=== PATIENT | female | born 1955 | race Caucasian/White ===

== ENCOUNTER 2024-10-12 12:15 | Emergency (ER) | payer MEDICARE, SELFPAY ==
[2024-10-12 12:18] VITALS: BP 148/97; PULSE 85; RESP 16; TEMP 36.5; O2SAT 100
--- NOTE | 2024-10-12 12:25 | PC.NURSE ---
Spoke with Mira from POISON control, no orders or recommendations at this time
--- NOTE | 2024-10-12 12:31 | PC.NURSE ---
pt called poison control from waiting room and reports she is going to go home
--- OUTSIDE RECORDS SUMMARY | 2024-10-12 13:36 | XMS_ITS | Encounter Summary ---
Author Organization [facility] Address [address] [place] [address] Phone Care Team Providers Care Hha Name Role Phone Aft, Tracy De Leon MD PhD Unavailable [phone] Malvin Hernandez MD Unavailable [phone] Leticia Fernandez MD Primary Care Provider Enio Stephenson MD Unavailable [phone] Rater, Shante CHAPIN Unavailable Christal Keating MD Unavailable [phone] Encounter Details Date Type Department Care Team (Latest Contact Info) Description 02/16/2021 Orders Only [facility] Scanning, Provider Social History Tobacco Use Types Packs/Day Years Used Date Smoking Tobacco: Never Smokeless Tobacco: Never Alcohol Use Standard Drinks/Week Comments Yes 7 (1 standard drink = 0.6 oz pure alcohol) Oncologist approved a glass of wine daily during treatment PHQ-2 Answer Date Recorded PHQ-2 Total Score (If total score is 3 or more points, staff should administer the PHQ-9) 1 05/08/2020 Comments Unknown Sex and Gender Information Value Date Recorded Sex Assigned at Not on file Legal Sex Female 10:43 AM [employer] Gender Identity Female 05/01/2020 1:22 PM CDT Sexual Orientation Straight 05/01/2020 1: 22 PM CDT documented as of this encounter Plan of Treatment Not on file documented as of this encounter Procedures Procedure Name Priority Date/Time Associated Diagnosis Comments SCAN - LABS 02/16/2021 documented in this encounter Results * SCAN - LABS (02/16/2021) us Provider Scanning Final Result documented in this encounter Visit Diagnoses Not on filedocumented in this encounter Additional Health Concerns Infection Onset Date Last Indicated Resolved Time COVID: Suspected 11/14/2023 11/14/2023 11/14/2023 9:19 AM CDT documented as of this encounter Care Teams Hha Relationship Specialty Start Date End Date Leticia Fernandez MD [address] [place] [address] PCP - General Internal Medicine 11/01/19 Aft, Tracy De Leon MD PhD [address] [place] [address] Referring Physician Surgical Oncology 02/16/18 Malvin Hernandez MD [address] [place] [address] Configuration Engineer Cardiovascular Disease 02/11/19 12/10/23 Enio Stephenson MD [address] [place] [address] Consulting Physician Cardiology 12/08/19 10/03/21 Shante Spicer NP [address] [place] [address] Nurse Practitioner Cardiovascular Disease 12/08/19 Christal Keating MD [address] [facility] [address] [facility] IM [facility]ICAL [facility]COL[facility]Y, [facility] [address] [place] [address] Medical Oncologist/Finisher [facility] 10/05/21 documented as of this encounter
--- OUTSIDE RECORDS SUMMARY | 2024-10-12 13:36 | XMS_ITS | Referral Summary ---
Author Organization [facility] al Address [address] [place] [address] Care Team Providers Care Construction Representative Name Role Phone Aft, Tracy De Leon MD PhD Unavailable [phone] Leticia Fernandez MD Primary Care Provider Shante Spicer NP Unavailable Christal Keating MD Unavailable [phone] Encounters Date Type Department Care Team Description 10/04/2024 3:30 PM CABLE COVERER Office Visit [facility] [address] [place] [phone] Shruti Park NP Acute non-recurrent pansinusitis (Primary Dx); Immune to measles; Class 1 obesity due to excess calories with serious comorbidity and body mass index (BMI) of 31.0 to 31.9 in adult 08/12/2024 2:15 PM CABLE COVERER Office Visit [facility] [address] [place] [phone] Leticia Fernandez MD Chronic systolic congestive heart failure (HCC) (Primary Dx); Chronic atrial fibrillation (HCC); Mixed hyperlipidemia; Acquired hypothyroidism; Primary hypertension; Routine general medical examination at a health care facility; Abnormal blood sugar; Vitamin D deficiency 07/14/2024 11:00 AM CABLE COVERER Office Visit [facility] Floor [address], [address] [place] [address] Néstor Dey MD Chronic atrial fibrillation (HCC) (Primary Dx); Mixed hyperlipidemia; Primary hypertension from Last 3 Months Allergies Active Allergy Reactions Criticality Noted Date Comments Bee Venom Protein (Honey Bee) Unknown 2018 Latex Other (See comments) Low 03/20/2016 Lisinopril Cough High 02/29/2020 Losartan Cough Low 05/08/2020 Magnesium Salicylate Syncope High 05/29/2018 syncope Monosodium Glutamate Unknown 11/11/2018 Medications calcium carbonate-vitamin D3 1,250mg (500mg elemental) - 5 mcg (200 units) per tablet TAKE TABLET DAILY Active cholecalciferol (VITAMIN D-3) 5,000 unit capsule Take 1 capsule (5,000 Units total) by mouth daily Active acetaminophen ER (TYLENOL) 650 mg 8 hr tablet Take 2 tablets (1,300 mg total) by mouth nightly as needed for pain 30 tablet 019 Active triamcinolone (KENALOG) 0.1 % cream Apply to affected area 1-2 times daily as needed. Avoid face and groin. 30 g 5 022 Active estradioL (ESTRACE) 0.01 % (0.1 mg/gram) vaginal creamIndications:V aginal atrophy Apply to vagina nightly for 1 week then every Friday//Friday. 42.5 g 11 022 Active fluticasone propionate (FLONASE) 50 mcg/actuation nasal spray Administer 1 spray into each nostril daily 1 each 1 023 Active albuterol-budesoni de 90-80 mcg/actuation HFA aerosol inhaler Inhale 2 puffs every 4 (four) hours as needed (cough, wheezing, SOB) 10.7 g 1 024 Active EPINEPHrine 0.3 mg/0.3 mL auto-injection syringeIndications :Anaphylaxis Inject 0.3 mL (0.3 mg total) under the skin as needed for anaphylaxis 2 each 3 024 Active levothyroxine (SYNTHROID) 125 mcg tablet Take 1 tablet (125 mcg total) by mouth daily 90 tablet 4 024 Active clobetasoL (TEMOVATE) 0.05 % cream APPLY CREAM TOPICALLY TWICE DAILY 60 g Active apixaban (Eliquis) 5 mg tabletIndications: Mixed hyperlipidemia,Chr onic atrial fibrillation (HCC),Chronic anticoagulation Take 1 tablet by mouth twice daily 180 tablet 3 025 Active spironolactone (ALDACTONE) 25 mg tabletIndications: LV dysfunction,Essent ial hypertension,Chron ic atrial fibrillation (HCC) Take 1 tablet (25 mg total) by mouth daily 90 tablet 3 Active metoprolol XL (TOPROL-XL) 25 mg extended release tabletIndications: LV dysfunction,Essent ial hypertension,Chron ic atrial fibrillation (HCC) Take 1 tablet (25 mg total) by mouth nightly 90 tablet 3 Active metoprolol XL (TOPROL-XL) 100 mg 24 hr tabletIndications: LV dysfunction,Essent ial hypertension,Mixed hyperlipidemia,Chr onic atrial fibrillation (HCC),Chronic anticoagulation Take 1 tablet (100 mg total) by mouth daily 90 tablet 3 Active simvastatin (ZOCOR) 40 mg tabletIndications: Mixed hyperlipidemia TAKE 1 TABLET NIGHTLY 90 tablet 3 Active alendronate (FOSAMAX) 70 mg tablet TAKE 1 TABLET EVERY 7 DAYS IN THE MORNING WITH A FULL GLASS OF WATER ON AN EMPTY STOMACH, AND DO NOT TAKE ANYTHING ELSE BY MOUTH OR LIE DOWN FOR THE NEXT 30 MINUTES 12 tablet 3 Active amoxicillin-clavul anate (AUGMENTIN) 875-125 mg per tablet Take 1 tablet by mouth 2 (two) times a day for 10 days 20 tablet 025 2024 Active alendronate (FOSAMAX) 70 mg tablet TAKE 1 TABLET EVERY 7 DAYS IN THE MORNING WITH A FULL GLASS OF WATER ON AN EMPTY STOMACH, AND DO NOT TAKE ANYTHING ELSE BY MOUTH OR LIE DOWN FOR THE NEXT 30 MINUTES 12 tablet 3 024 2024 Discontinued simvastatin (ZOCOR) 40 mg tabletIndications: Mixed hyperlipidemia TAKE 1 TABLET NIGHTLY 90 tablet 3 024 2024 Discontinued Active Problems Problem Noted Date Diagnosed Date Primary hypertension 07/14/2024 Combined forms of age-related cataract of both e yes 01/16/2024 Assessment & Plan (02/23/2024 11:52 AM CDT): Released new SRx- doctor remake. Monitor as scheduled 01/2025 for annual exam, sooner prn. Assessment & Plan (01/16/2024 10:45 AM CDT): Educated patient on s/s associated with cataracts. Not visually significant, recommend UV protection. Released updated SRx. Monitor. Posterior vitreous detachment of left eye 2023 Assessment & Plan (01/16/2024 10:44 AM CDT): No h/t/d 360 today. Educated pt, reviewed s/s of RD/RT and to RTC should any occur. Otherwise, monitor w/ annual DFE. 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 No bleeding. Assessment & Plan (01/19/2019 7:16 AM CDT): Stable on Eliquis BMI 33.0-33.9,adult 07/20/2018 Assessment & Plan (01/19/2019 7:18 AM CDT): BMI Follow-up includes: exercise counseling. Allergic rhinitis 07/20/2018 Assessment & Plan (08/09/2019 4:15 PM CABLE COVERER): Stable on Flonase and fexofenadine Assessment & Plan (01/19/2019 7:18 AM CDT): Stable on Flonase and fexofenadine Restrictive ventilatory defect 07/13/2018 Hyperlipidemia 08/26/2017 Assessment & Plan (08/09/2019 4:16 PM CABLE COVERER): Stable on simvastatin and fenofibrate Assessment & Plan (04/20/2019 1:53 PM CDT): Continue simvastatin Assessment & Plan (01/19/2019 7:16 AM CDT): Stable on fenofibrate and simvastatin Hypothyroidism 05/19/2017 Assessment & Plan (08/09/2019 4:13 PM CABLE COVERER): Stable on levothyroxine Assessment & Plan (01/19/2019 7:15 AM CDT): Stable on levothyroxine CLL (chronic lymphocytic leukemia) 03/20/2016 Assessment & Plan (08/09/2019 4:14 PM CABLE COVERER): Active surveillance with Dr. Keating Assessment & Plan (01/19/2019 7:17 AM CDT): Stable. Follows with Dr. Keating Scoliosis Resolved Problems Problem Noted Date Diagnosed Date Resolved Date CLL C91.10 02/09/2018 02/25/2018 Chronic atrial fibrillation 05/19/2017 09/03/2019 Assessment & Plan (08/10/2019 2:16 PM CABLE COVERER): Rate controlled on metoprolol. Stroke prophylaxis with Eliquis Assessment & Plan (04/20/2019 1:50 PM CDT): Rate controlled. Severe left atrial enlargement. Continue metoprolol and digoxin. Assessment & Plan (01/19/2019 7:16 AM CDT): Rate controlled on Toprol XL and digoxin. Stroke prophylaxis with Eliquis Immunizations Immunization Administration Dates Next Due COVID-19 mRNA (Cityzenith) 0.3 m L (30 mcg) vaccine (12 years and up) 04/27/2023 Influenza, Quad, Adjuvantate d, Intramuscular 06/08/2023 Influenza, Quadrivalent, Hig h Dose, Preservative Free, Intrr 05/15/2021,05/08/2020 Influenza, Quadrivalent, Spl it, Preservative Free, Intramuscular 04/01/2018 Influenza, Trivalent, High D ose, Split, Preservative Free, Intramuscular 04/28/2024 Influenza, Trivalent, IM (MDV) 05/04/2017 Influenza, Trivalent, Preser vative Free, Intramuscular 04/16/2016,05/11/2015 Influenza, Unspecified 05/28/2023(Deferr ed: Patient Refused),05/06/2022,04/05/2019(Deferre d: Patient Refused) Pfizer SARS-CoV-2 Monovalent Vaccination (12+ Yrs) PURPLE 05/06/2022,03/19/2021,03/19/2021,09/30,09/30/2020,09/08/2020,09/08/2020 Pneumococcal Conjugate PCV 13 05/21/2017, 015,05/11/2015 Pneumococcal Polysaccharide PPV23 05/13/2018 RSV Vaccine, Pref, Recombina nt, Subunit, Adjuvanted, PF, IM (Arexvy) 05/28/2023,05/15/2023 ZOSTER Recombinant 05/13/2018,03/12/2018 Social History Tobacco Use Types Packs/Day Years Used Date Smoking Tobacco: Never Smokeless Tobacco: Never Tobacco Cessation:Counseling Given: Not Answered Alcohol Use Standard Drinks/Week Comments Yes 7 (1 standard drink = 0.6 oz pure alcohol) Oncologist approved a glass of wine daily during treatment AUDIT-C Answer Date Recorded Q1: How often do you have a drink containing alcohol? 4 or more times a week 01/15/2024 Q2: How many drinks containi ng alcohol do you have on a typical day when you are drinking? 1 or 2 Q3: How often do you have si x or more drinks on one occasion? Never 01/15/2024 PHQ-2 Answer Date Recorded PHQ-2 Total Score (If total score is 3 or more points, staff should administer the PHQ-9) 0 10/04/2024 PHQ-9 Answer Date Recorded PHQ-9 Total Score 0 01/15/2024 Comments No Sex and Gender Information Value Date Recorded Sex Assigned at Not on file Legal Sex Female 10:43 AM CABLE COVERER Gender Identity Female 05/01/2020 1:22 PM CDT Sexual Orientation Straight 05/01/2020 1: 22 PM CDT Last Filed Vital Signs Vital Sign Reading Time Taken Comments Blood Pressure 114/72 10/04/2024 3:25 PM CABLE COVERER Pulse 88 10/04/2024 3:25 PM CABLE COVERER Temperature 35.9 C (96.6 F) 10/04/2024 3:25 PM CABLE COVERER Respiratory Rate 17 07/14/2024 10:57 AM CABLE COVERER Oxygen Saturation 98% 10/04/2024 3:25 PM CABLE COVERER Inhaled Oxygen Concentration - - Weight 81.3 kg (179 lb 3.2 oz) 10/04/2024 3:25 P M CABLE COVERER Height 160 cm (5' 3 ) 10/04/2024 3:25 PM CABLE COVERER Body Mass Index 31.74 10/04/2024 3:25 PM CABLE COVERER Plan of Treatment Not on file Procedures Procedure Name Priority Date/Time Associated Diagnosis Comments SCREENING MAMMOGRAM BILATERAL W FRANCISCO Schedule Routine, Read Routine (OP Routine) 06/15/2024 11:10 AM CABLE COVERER Screening mammogram, encounter for STOOL DNA COLOGUARD Routine 01/27/2024 8:18 AM CDT Colon cancer screening DEXA AXIAL SKELETON BONE DENSITY 1 OR MORE SITES Schedule Routine, Read Routine (OP Routine) 12/26/2022 3:28 PM CDT Post-menopausal HEPATITIS C ANTIBODY Routine 02/18/2019 2:09 PM CDT CLL (chronic lymphocytic leukemia) (HCC) COLONOSCOPY Routine 03/15/2011 from Last 3 Months or Most Recently Relevant to Health Maintenance Results * Screening Mammogram Bilateral W Francisco (06/15/2024 11:10 AM CABLE COVERER) Anatomical Region Laterality Modality Breast Bilateral Mammography Impressions 06/15/2024 11:42 AM CABLE COVERER BI-RADS ATLAS category (overall): 1 - Negative There is no mammographic evidence of malignancy. A 1 year screening mammogram is recommended. The patient has been or will be contacted. We recommend annual screening mammography for women at average risk of breast cancer beginning at age 40, based on guidelines of the [place] [employer] (ACR Practice Parameter for the Performance of Screening and Diagnostic Mammography) and [place] [employer]. For women with and elevated risk of breast cancer, please refer to the ACR Practice Parameter for specific screening recommendations. The patient will be entered into a reminder system with a target due date of 1 year for her next screening exam. Narrative 06/15/2024 11:42 AM CABLE COVERER Screening Mammogram Bilateral W Francisco: 06/15/24 The study was acquired using full field digital technology and interpreted from soft copy. 2D digital mammographic views, as well as 3D digital tomosynthesis were performed in the CC and MLO projections. CLINICAL: Screening mammogram, encounter for. No relevant medical history has been documented for this patient. History of breast cancer in Sister. COMPARISONS: 03/05/2023 Screening Mammogram Bilateral W Francisco 01/28/2022 Screening Mammogram Bilateral W Francisco 12/08/2020 Screening Mammogram Bilateral W Francisco 03/30/2019 Screening Mammogram Bilateral W Francisco BREAST TISSUE: There are scattered areas of fibroglandular density. FINDINGS: No suspicious masses, suspicious calcifications, or other suspicious findings are seen within either breast. There has been no suspicious change. Leticia Fernandez MD [facility] [place] [facility] CED[facility] Final Result * Stool DNA - Cologuard (01/27/2024 8:18 AM CDT) Stool DNA - Cologuard Negative Negative [facility] (CLIA #:[id number]) Comment: NEGATIVE TEST RESULT. A negative Cologuard result indicates a low likelihood that a colorectal cancer (CRC) or advanced adenoma (adenomatous polyps with more advanced pre-malignant features) is present. The chance that a person with a negative Cologuard test has a colorectal cancer is less than 1 in 1500 (negative predictive value >99.9%) or has an advanced adenoma is less than 5.3% (negative predictive value 94.7%). These data are based on a prospective cross-sectional study of 10,000 individuals at average risk for colorectal cancer who were screened with both Cologuard and colonoscopy. (Nia Fernandez al, N Engl J Med 2014;370(14):6024-8321) The normal value (reference range) for this assay is negative. COLOGUARD RE-SCREENING RECOMMENDATION: Periodic colorectal cancer screening is an important part of preventive healthcare for asymptomatic individuals at average risk for colorectal cancer. Following a negative Cologuard result, the [place] [employer] and U.S. Multi-Society Task Force screening guidelines recommend a Cologuard re-screening interval of 3 years. References: [place] [employer] Guideline for Colorectal Cancer Screening: https://www.cancer.org/cancer/pqhai-vurgsl-sbnjhu/rclknocqf-bavsralzw-rqatypq/ac s-rec ommendations.html.; James DK, Nathalie BURCH, Meagan WhiteK, Colorectal Cancer Screening: Recommendations for Physicians and Patients from the U.S. Multi-Society Task Force on Colorectal Cancer Screening , Am J Gastroenterology 2017; 112:2988-7585. TEST DESCRIPTION: Composite algorithmic analysis of stool DNA-biomarkers with hemoglobin immunoassay. Quantitative values of individual biomarkers are not reportable and are not associated with individual biomarker result reference ranges. Cologuard is intended for colorectal cancer screening of adults of either sex, 45 years or older, who are at average-risk for colorectal cancer (CRC). Cologuard has been approved for use by the U.S. FDA. The performance of Cologuard was established in a cross sectional study of average-risk adults aged 50-84. Cologuard performance in patients ages 45 to 49 years was estimated by sub-group analysis of near-age groups. Colonoscopies performed for a positive result may find as the most clinically significant lesion: colorectal cancer [4.0%], advanced adenoma (including sessile serrated polyps greater than or equal to 1cm diameter) [20%] or non- advanced adenoma [31%]; or no colorectal neoplasia [45%]. These estimates are derived from a prospective cross-sectional screening study of 10,000 individuals at average risk for colorectal cancer who were screened with both Cologuard and colonoscopy. (Nia Baptiste, N Engl J Med 2014;370(14):6528-5716.) Cologuard may produce a false negative or false positive result (no colorectal cancer or precancerous polyp present at colonoscopy follow up). A negative Cologuard test result does not guarantee the absence of CRC or advanced adenoma (pre-cancer). The current Cologuard screening interval is every 3 years. ([place] [employer] and U.S. Multi-Society Task Force). Cologuard performance data in a 10,000 patient pivotal study using colonoscopy as the reference method can be accessed at the following location: www.[employer]/results. Additional description of the Cologuard test process, warnings and precautions can be found at www.cologuard.com. Stool 01/27/2024 8:18 AM CDT 01/28/2024 9:44 AM CDT Leticia Fernandez MD LAB B [facility] FLUIDS AND STOOLS ORDERABLES Final Result [facility] (CLIA #:[id number]) [place] [address] * Dexa Axial Skeleton Bone Density 1 or 2 Site (12/26/2022 3:28 PM CDT) Anatomical Region Laterality Modality Body N/A Mammography 12/28/2022 10:0 6 AM CDT Narrative 12/28/2022 10:08 AM CDT EXAM DESCRIPTION: DEXA AXIAL SKELETON BONE DENSITY 1 OR MORE SITES REASON FOR STUDY: 67 y/o year old F with given history of screening. 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 COMPARISON: 12/25/2020 FINDINGS: AP LUMBAR SPINE L1-L4: Total BMD is 0.866 g/cm2 T-score is -1.6 This is a 30.5% increase in comparison to prior exam which is statistically significant. LEFT HIP: Total BMD is 0.984 g/cm2 T-score is 0.3 This is an 8% increase in comparison to prior exam which is statistically significant. Femoral neck BMD is 0.901 g/cm2 T-score is 0.5 Left forearm BMD in the radius 33% is 0.667 g/cm2 T-score is -0.5 This is a 0.9% decrease in comparison to prior exam which is not clinically significant FRAX: 10 year risk for a major osteoporotic fracture is 7.3 %, 10 year risk for a hip fracture is 0.3 % IMPRESSION: Low bone mass REFERENCE: Bone mineral density: Normal (T-score above or = -1.0) Low bone mass (T-score between -1.0 and -2.5) replaces the previously used term osteopenia Osteoporosis (T-score = or below -2.5) Medical evaluation for secondary causes of low bone mineral density may be appropriate. FRAX is a World Health Organization validated fracture risk assessment tool that calculates a person's 10 year probability of a major osteoporosis related fracture and hip fracture. According to the National Osteoporosis Foundation guidelines, postmenopausal women and men age 50 or older with low bone mass and a 10 year probability of a major osteoporosis related fracture = or greater than 20% or a 10 year probability of a hip fracture = or greater than 3% should be considered for treatment. For further information, including treatment recommendations, please refer to the 2019 ISCD Official Positions (http://www.iscd.org) and the NOF's Clinician's Guide to Prevention and Treatment of Osteoporosis (http://www.nof.org/professionals/clinical-guidelines) THIS IS AN ELECTRONICALLY VERIFIED FINAL REPORT 12/28/2022 10:08 AM - Electronically signed by Bettie Watt M.D. TW: TW Report ID: [id number] Reading Location: [id number] Procedure Note Bettie Watt MD - 12/28/2022 EXAM DESCRIPTION: DEXA AXIAL SKELETON BONE DENSITY 1 OR MORE SITES REASON FOR STUDY: 67 y/o year old F with given history of screening. 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 COMPARISON: 12/25/2020 FINDINGS: AP LUMBAR SPINE L1-L4: Total BMD is 0.866 g/cm2 T-score is -1.6 This is a 30.5% increase in comparison to prior exam which isstatistically significant. LEFT HIP: Total BMD is 0.984 g/cm2 T-score is 0.3 This is an 8% increase in comparison to prior exam which is statistically significant. Femoral neck BMD is 0.901 g/cm2 T-score is 0.5 Left forearm BMD in the radius 33% is 0.667 g/cm2 T-score is -0.5 This is a 0.9% decrease in comparison to prior exam which is notclinically significant FRAX: 10 year risk for a major osteoporotic fracture is 7.3 %, 10 year risk fora hip fracture is 0.3 % IMPRESSION: Low bone mass REFERENCE: Bone mineral density: Normal (T-score above or = -1.0) Low bone mass (T-score between -1.0 and -2.5) replaces thepreviously used term osteopenia Osteoporosis (T-score = or below -2.5) Medical evaluation for secondary causes of low bone mineral density may be appropriate. FRAX is a World Health Organization validated fracture risk assessmenttool that calculates a person's 10 year probability of a major osteoporosisrelated fracture and hip fracture. According to the National OsteoporosisFoundation guidelines, postmenopausal women and men age 50 or older with low bonemass and a 10 year probability of a major osteoporosis related fracture = or greater than 20% or a 10 year probability of a hip fracture = or greaterthan 3% should be considered for treatment. For further information, including treatment recommendations, please referto the 2019 ISCD Official Positions (http://www.iscd.org) and the NOF's Clinician's Guide to Prevention and Treatment of Osteoporosis (http://www.nof.org/professionals/clinical-guidelines) THIS IS AN ELECTRONICALLY VERIFIED FINAL REPORT 12/28/2022 10:08 AM - Electronically signed by Bettie Watt M.D. TW: MARIE Report ID: [id number] Reading Location: [id number] us Leticia Fernandez MD IMG DXA JUNE HDEZ Final Result * Hepatitis C antibody (02/18/2019 2:09 PM CDT) Hep C Ab Nonreactive Nonreactive [facility] Comment: Interpretive Data Positive results should be confirmed by a molecular method. If positive, a second separately collected sample should be submitted for Hepatitis C Virus (HCV) RNA Detection and Quantitation by Real-Time Reverse Customs Agent-PCR (RT-PCR). Current interpretive data was last revised on 2016. Blood specimen (specimen) 02/18/2019 2:09 PM CDT 02/18/2019 2:19 PM CDT Christal Keating MD LAB MICROBIOLOGY - GENERAL ORDERABLES Edited Result - Final [facility] Department [place] [address] * Colonoscopy (03/15/2011) Anatomical Region Laterality Modality Other Historical Provider ENDOSCOPY PROCEDURES Tana l Result from Last 3 Months or Most Recently Relevant to Health Maintenance Insurance MEDICARE [facility] [place] [address] MEDICARE [facility] [place] [address] MEDICARE [facility] [place] [address] Care Teams Construction Representative Relationship Specialty Start Date End Date Leticia Fernandez MD [address] [place] [address] PCP - General Internal Medicine 11/01/19 Aft, Tracy De Leon MD PhD [address] [place] [address] Referring Physician Surgical Oncology 02/16/18 Shante Spicer NP [address] [place] [address] Nurse Practitioner Cardiovascular Disease 12/08/19 Christal Keating MD [address] [facility], [facility] [address] [place] [address] Medical Oncologist/Zigzag Stitcher Medical Oncology 10/05/21
--- OUTSIDE RECORDS SUMMARY | 2024-10-12 13:36 | XMS_ITS | Encounter Summary ---
Author Organization [facility] Address [address] [place] [address] Phone Care Team Providers Care Cma Name Role Phone Aft, Tracy De Leon MD PhD Unavailable [phone] Malvin Hernandez MD Unavailable [phone] Leticia Fernandez MD Primary Care Provider Enio Stephenson MD Unavailable [phone] Nayan, Shante CHAPIN Unavailable Christal Keating MD Unavailable [phone] Encounter Details Date Type Department Care Team (Latest Contact Info) Description 05/21/2017 Orders Only [facility] CONVERSION Scanning, Provider Social History Tobacco Use Types Packs/Day Years Used Date Smoking Tobacco: Never Comments Unknown Sex and Gender Information Value Date Recorded Sex Assigned at Not on file Legal Sex Female 10:43 AM DIRECTOR TRADE Gender Identity Female 05/01/2020 1:22 PM CDT Sexual Orientation Straight 05/01/2020 1: 22 PM CDT documented as of this encounter Plan of Treatment Not on file documented as of this encounter Procedures Procedure Name Priority Date/Time Associated Diagnosis Comments PULMONARY FUNCTION TEST (PFT) 05/21/2017 12:37 PM CDT documented in this encounter Results * PULMONARY FUNCTION TEST (PFT) (05/21/2017 12:37 PM CDT) Anatomical Region Laterality Modality PFT us Provider Scanning PFT ORDERABLES Final Result documented in this encounter Visit Diagnoses Not on filedocumented in this encounter Additional Health Concerns Infection Onset Date Last Indicated Resolved Time COVID: Suspected 11/14/2023 11/14/2023 11/14/2023 9:19 AM CDT documented as of this encounter Care Teams Cma Relationship Specialty Start Date End Date Leticia Fernandez MD [address] [place] [address] PCP - General Internal Medicine 11/01/19 Aft, Tracy De Leon MD PhD [address] [place] [address] Referring Physician Surgical Oncology 02/16/18 [place] [address] [place] [address] Health Information Administrator Cardiovascular Disease 02/11/19 12/10/23 [place] [address] [place] [address] Consulting Physician Cardiology 12/08/19 10/03/21 [place] [address] [place] [address] Nurse Practitioner Cardiovascular Disease 12/08/19 [place] [address] [place] [address] DIV IM MEDICAL ONCOLOGY, [facility] [address], [address] [place] [address] Medical Oncologist/C++ Professor Medical Oncology 10/05/21 documented as of this encounter
--- OUTSIDE RECORDS SUMMARY | 2024-10-12 13:36 | XMS_ITS ---
Author Organization [facility] Address [address] [place] [address] Care Team Providers Care Community Coordinator [employer] Name Role Phone Aft, Tracy De Leon MD PhD Unavailable Leticia Fernandez MD Primary Care Provider Shante Spicer NP Unavailable Christal Keating MD Unavailable [phone] Active Problems Problem Noted Date Diagnosed Date [...] 08/10/2019 Assessment & Plan (08/10/2019 2:20 PM MIDDLE SCHOOL PROFESSIONAL): Stable on Vitamin D Chronic anticoagulation 01/19/2019 Assessment & Plan (04/20/2019 1:50 PM CDT): Continue Eliquis 5 b.i.d. No bleeding. Assessment & Plan (01/19/2019 7:16 AM CDT): Stable on Eliquis BMI 33.0-33.9,adult 07/20/2018 Assessment & Plan (01/19/2019 7:18 AM CDT): BMI Follow-up includes: exercise counseling. Allergic rhinitis 07/20/2018 Assessment & Plan (08/09/2019 4:15 PM MIDDLE SCHOOL PROFESSIONAL): Stable on Flonase and fexofenadine Assessment & Plan (01/19/2019 7:18 AM CDT): Stable on Flonase and fexofenadine Restrictive ventilatory defect 07/13/2018 Hyperlipidemia 08/26/2017 Assessment & Plan (08/09/2019 4:16 PM MIDDLE SCHOOL PROFESSIONAL): Stable on simvastatin and fenofibrate Assessment & Plan (04/20/2019 1:53 PM CDT): Continue simvastatin Assessment & Plan (01/19/2019 7:16 AM CDT): Stable on fenofibrate and simvastatin Hypothyroidism 05/19/2017 Assessment & Plan (08/09/2019 4:13 PM MIDDLE SCHOOL PROFESSIONAL): Stable on levothyroxine Assessment & Plan (01/19/2019 7:15 AM CDT): Stable on levothyroxine CLL (chronic lymphocytic leukemia) 03/20/2016 Assessment & Plan (08/09/2019 4:14 PM MIDDLE SCHOOL PROFESSIONAL): Active surveillance with Dr. Keating Assessment & Plan (01/19/2019 7:17 AM CDT): Stable. Follows with Dr. Keating Scoliosis Current Treatment and Therapy Plans No current plan information found. Past Treatment and Therapy Plans Line Care Plan Name Start Date Discontinue Date Treatment Medications Discontinue Reason Plan Provider IV MAINTENANCE THERAPY PLAN 03/04/2019 09/20/2021 No medications scheduled. Change in Level of Care Chrsital Keating MD Oncology Chemotherapy Treatment Plan Name Start Date Discontinue Date Treatment Medications Discontinue Reason Plan Provider Cycles [id number] - [facility] - Lymphoma- [id number] - Arm A - Ibrutinib / Obinutuzumab / Venetoclax - Cycles 3-19 - Low / Intermediate TLS Risk (OUTPATIENT) 9 11/07/2020 INV-[facility] (/E A9161) obinutuzumab IVPB in 250 mLINV-[facility] ibrutinib (/E A9161)INV-[facility] _[facility] venetoclax (ABT-199) (/E A9161) Therapy Christal Serrano MD 19 (17 of 17 cycles) completed [id number] - [facility] - Lymphoma- [id number] - Arm A - Ibrutinib / Obinutuzumab / Venetoclax - Cycles 1 and 2 9 03/26/2019 INV-[facility] (/E A9161) obinutuzumab IVPB in 250 mLINV-[facility] ibrutinib (/E A9161) Therapy Christal Serrano MD 2 of 2 cycles completed Oncology Supportive Care Plan Name Start Date Discontinue Date Treatment Medications Discontinue Reason Plan Provider HYDRATION THERAPY PLAN 04/25/2019 09/20/2021 No medications scheduled. Change in Level of Care Christal Keating MD Lifetime Dose Tracking * Chemical Lifetime Dose Automatic Entry Manual Entr y DLP 7,477 mGycm 7,477 mGycm 0 mGycm Resolved Problems Problem Noted Date Diagnosed Date Resolved Date CLL C91.10 02/09/2018 02/25/2018 Chronic atrial fibrillation 05/19/2017 09/03/2019 Assessment & Plan (08/10/2019 2:16 PM MIDDLE SCHOOL PROFESSIONAL): Rate controlled on metoprolol. Stroke prophylaxis with Eliquis Assessment & Plan (04/20/2019 1:50 PM CDT): Rate controlled. Severe left atrial enlargement. Continue metoprolol and digoxin. Assessment & Plan (01/19/2019 7:16 AM CDT): Rate controlled on Toprol XL and digoxin. Stroke prophylaxis with Eliquis
--- OUTSIDE RECORDS SUMMARY | 2024-10-12 13:37 | XMS_ITS | Clinical Summary ---
Author Organization [facility] Address [address] [place] [address] Care Team Providers Care Day Care Attendant Name Role Phone Aft, Tracy De Leon MD PhD Unavailable [phone] Leticia Fernandez MD Primary Care Provider Shante Spicer NP Unavailable Christal Keating MD Unavailable [phone] Allergies Active Allergy Reactions Criticality Noted Date [...] APPLY CREAM TOPICALLY TWICE DAILY 60 g 024 Active apixaban (Eliquis) 5 mg tabletIndications: Mixed hyperlipidemia,Chr onic atrial fibrillation (HCC),Chronic anticoagulation Take 1 tablet by mouth twice daily 180 tablet 3 025 Active spironolactone (ALDACTONE) 25 mg tabletIndications: LV dysfunction,Essent ial hypertension,Chron ic atrial fibrillation (HCC) Take 1 tablet (25 mg total) by mouth daily 90 tablet 3 025 Active metoprolol XL (TOPROL-XL) 25 mg extended release tabletIndications: LV dysfunction,Essent ial hypertension,Chron ic atrial fibrillation (HCC) Take 1 tablet (25 mg total) by mouth nightly 90 tablet 3 025 Active metoprolol XL (TOPROL-XL) 100 mg 24 hr tabletIndications: LV dysfunction,Essent ial hypertension,Mixed hyperlipidemia,Chr onic atrial fibrillation (HCC),Chronic anticoagulation Take 1 tablet (100 mg total) by mouth daily 90 tablet 3 025 Active simvastatin (ZOCOR) 40 mg tabletIndications: Mixed hyperlipidemia TAKE 1 TABLET NIGHTLY 90 tablet 3 025 Active alendronate (FOSAMAX) 70 mg tablet TAKE 1 TABLET EVERY 7 DAYS IN THE MORNING WITH A FULL GLASS OF WATER ON AN EMPTY STOMACH, AND DO NOT TAKE ANYTHING ELSE BY MOUTH OR LIE DOWN FOR THE NEXT 30 MINUTES 12 tablet 3 025 Active amoxicillin-clavul anate (AUGMENTIN) 875-125 mg per [...] 08/10/2019 Assessment & Plan (08/10/2019 2:20 PM SKILLED NURSING PROFESSIONAL): Stable on Vitamin D Chronic anticoagulation 01/19/2019 Assessment & Plan (04/20/2019 1:50 PM CDT): Continue Eliquis 5 b.i.d. No bleeding. Assessment & Plan (01/19/2019 7:16 AM CDT): Stable on Eliquis BMI 33.0-33.9,adult 07/20/2018 Assessment & Plan (01/19/2019 7:18 AM CDT): BMI Follow-up includes: exercise counseling. Allergic rhinitis 07/20/2018 Assessment & Plan (08/09/2019 4:15 PM SKILLED NURSING PROFESSIONAL): Stable on Flonase and fexofenadine Assessment & Plan (01/19/2019 7:18 AM CDT): Stable on Flonase and fexofenadine Restrictive ventilatory defect 07/13/2018 Hyperlipidemia 08/26/2017 Assessment & Plan (08/09/2019 4:16 PM SKILLED NURSING PROFESSIONAL): Stable on simvastatin and fenofibrate Assessment & Plan (04/20/2019 1:53 PM CDT): Continue simvastatin Assessment & Plan (01/19/2019 7:16 AM CDT): Stable on fenofibrate and simvastatin Hypothyroidism 05/19/2017 Assessment & Plan (08/09/2019 4:13 PM SKILLED NURSING PROFESSIONAL): Stable on levothyroxine Assessment & Plan (01/19/2019 7:15 AM CDT): Stable on levothyroxine CLL (chronic lymphocytic leukemia) 03/20/2016 Assessment & Plan (08/09/2019 4:14 PM SKILLED NURSING PROFESSIONAL): Active surveillance with Dr. Keating Assessment & Plan (01/19/2019 7:17 AM CDT): Stable. Follows with Dr. Keating Scoliosis Resolved Problems Problem Noted Date Diagnosed Date Resolved Date CLL C91.10 02/09/2018 02/25/2018 Chronic atrial fibrillation 05/19/2017 09/03/2019 Assessment & Plan (08/10/2019 2:16 PM SKILLED NURSING PROFESSIONAL): Rate controlled on metoprolol. Stroke prophylaxis with Eliquis Assessment & Plan (04/20/2019 1:50 PM CDT): Rate controlled. Severe left atrial enlargement. Continue metoprolol and digoxin. Assessment & Plan (01/19/2019 7:16 AM CDT): Rate controlled on Toprol XL and digoxin. Stroke prophylaxis with Eliquis Encounters Date Type Department Care Team Description 10/04/2024 3:30 PM SKILLED NURSING PROFESSIONAL Office Visit [facility] [address] [place] [phone] Shruti Park NP Acute non-recurrent pansinusitis (Primary Dx); Immune to measles; Class 1 obesity due to excess calories with serious comorbidity and body mass index (BMI) of 31.0 to 31.9 in adult 08/12/2024 2:15 PM SKILLED NURSING PROFESSIONAL Office Visit [facility] Care [address] [place] [phone] Leticia Fernandez MD Chronic systolic congestive heart failure (HCC) (Primary Dx); Chronic atrial fibrillation (HCC); Mixed hyperlipidemia; Acquired hypothyroidism; Primary hypertension; Routine general medical examination at a health care facility; Abnormal blood sugar; Vitamin D deficiency 07/14/2024 11:00 AM SKILLED NURSING PROFESSIONAL Office Visit [facility] [address] [facility] [address], [address] [place] [address] Néstor Dey MD Chronic atrial fibrillation (HCC) (Primary Dx); Mixed hyperlipidemia; Primary hypertension from Last 3 Months Immunizations Immunization Administration Dates Next Due COVID-19 mRNA ([employer]) 0.3 m L (30 mcg) vaccine (12 [...] PF, IM (Arexvy) 05/28/2023,05/15/2023 ZOSTER Recombinant 05/13/2018,03/12/2018 Surgical History Surgery Date Site/Laterality Comments BIOPSY LYMPH NODE SUPERFICIAL 03/19/2016 N/A BIOPSY LYMPH NODE SUPERFICIAL 03/19/2016 N/A DILATION AND CURETTAGE OF UTERUS 08/04/2003 - 08/03/2004 BREAST BIOPSY 08/04/1997 - 08/03/1998 Right CARDIAC ELECTROPHYSIOLOGY ST UDY AND ABLATION 08/04/2009 - 08/03/2010 ASD REPAIR 08/04/1985 - 08/03/1986 CARDIAC VALVE REPLACEMENT ASD Repair - 1985 Medical History Medical History Date Comments Hyperlipidemia Hypothyroidism Elevated blood sugar Chronic atrial fibrillation (HCC) Scoliosis Hx of non-Hodgkin's lymphoma 02/2016 Other obesity due to excess calories CLL (chronic lymphocytic leukemia) (HCC) Allergic rhinitis Arthritis 2013 Osteoporosis 2020 Cataract 2019 Heart disease ASD /[id number]/ Congestive Hear Failure Sleep apnea 2019 Family History Medical History Relation Name Comments Heart attack Father Herminio Moreland Heart disease Father Herminio Moreland Family histor y of cardiac disorder - (Added by TW Conv) Hypertension Father Herminio Moreland Family history of hypertension - (Added by TW Conv) Alzheimer's disease Mother Danielle Moreland Stroke Mother Danielle Moreland Family history of cerebrovascular accident (CVA) - (Added by TW Conv) Vision loss Paternal Grandmother Khalif Moreland Breast cancer Sister 1 Colon cancer Sister 1 Cancer Sister 2 Meseret Patel Relation Name Status Comments Father Herminio Moreland Mother Danielle Moreland Paternal Grandmother Grandma Aniceto Sister 1 Sister 2 Meseret Patel Social History Tobacco Use Types Packs/Day Years [...] on file Legal Sex Female 10:43 AM SKILLED NURSING PROFESSIONAL Gender Identity Female 05/01/2020 1:22 PM CDT Sexual Orientation Straight 05/01/2020 1: 22 PM CDT Obstetrics History Para Term AB IAB SAB Ectopic Multiple Livin g Live Births 2 2 2 Date Outcome GA Total Labor Labor/2nd/3rd Weight Sex Type Anes PTL Patricia A1 A5 Name Clin Term Term Last Filed Vital Signs Vital Sign Reading Time Taken Comments Blood Pressure 114/72 10/04/2024 3:25 PM SKILLED NURSING PROFESSIONAL Pulse 88 10/04/2024 3:25 PM SKILLED NURSING PROFESSIONAL Temperature 35.9 C (96.6 F) 10/04/2024 3:25 PM SKILLED NURSING PROFESSIONAL Respiratory Rate 17 07/14/2024 10:57 AM SKILLED NURSING PROFESSIONAL Oxygen Saturation 98% 10/04/2024 3:25 PM SKILLED NURSING PROFESSIONAL Inhaled Oxygen Concentration - - Weight 81.3 kg (179 lb 3.2 oz) 10/04/2024 3:25 P M SKILLED NURSING PROFESSIONAL Height 160 cm (5' 3 ) 10/04/2024 3:25 PM SKILLED NURSING PROFESSIONAL Body Mass Index 31.74 10/04/2024 3:25 PM SKILLED NURSING PROFESSIONAL Plan of Treatment Health Maintenance Due Date Last Done Comments DTaP/Tdap/Td Vaccine (1 - Tdap) 1966 Hepatitis B Screening 11/18/1971 Pneumococcal vaccine 65+ (3 of 3 - PPSV23, PCV20 or PCV21) 05/13/2023 05/13/2018, 05/21/2017, 05/11/2015, Additional history exists Covid-19 Vaccine (12 - Pfize r risk ) 10/06/2024 04/08/2024, 10/14/2023, 04/27/2023, Additional history exists Osteoporosis Screening-Bone Density Scan 12/26/2024 12/26/2022, 12/25/2020, 02/06/2017 Fall Risk Assessment 01/14/2025 01/15/2024, 05/28/2023, 05/27/2022, Additional history exists Well Visit 65+ 01/14/2025 01/15/2024, 05/05, 05/15/2021, Additional history exists Breast Cancer Screening-Mammogram 06/15/2025 06/15/2024, 03/05/2023, 01/28/2022, Additional history exists Depression Screening 10/04/2025 10/04/2024, 08/12/2024, 01/15/2024, Additional history exists Colon Cancer Screening-DNA Stool 01/26/2027 01/27/2024, 12/06/2020, 03/15/2011 Colon Cancer Screening-CT Colonography Discontinued 03/15/2011 Colon Cancer Screening-Colonoscopy Discontinued 03/15/2011 Colon Cancer Screening-Sigmoidoscopy Discontinued 03/15/2011 Zoster Vaccine Completed 05/13/2018, 03/12/2018 Hepatitis C Screening Completed 02/18/2019, 016 Colon Cancer Screening-FIT Discontinued 01/26, 12/06/2020, 03/15/2011 Influenza Vaccine Completed 04/28/2024, , 05/06/2022, Additional history exists Procedures Procedure Name Priority Date/Time Associated Diagnosis Comments SCREENING MAMMOGRAM BILATERAL W FRANCISCO Schedule Routine, Read Routine (OP Routine) 06/15/2024 11:10 AM SKILLED NURSING PROFESSIONAL Screening mammogram, encounter for STOOL DNA COLOGUARD [...] Mammogram Bilateral W Francisco (06/15/2024 11:10 AM SKILLED NURSING PROFESSIONAL) Anatomical Region Laterality Modality Breast Bilateral Mammography Impressions 06/15/2024 11:42 AM SKILLED NURSING PROFESSIONAL BI-RADS ATLAS category (overall): 1 - Negative There is no mammographic evidence of malignancy. A 1 year screening mammogram is recommended. The patient has been or will be contacted. We recommend annual screening mammography for women at average risk of breast cancer beginning at age 40, based on guidelines of the [place] (ACR Practice Parameter for the Performance of Screening and Diagnostic Mammography) and [place]. For women with and elevated risk of breast cancer, please refer to the ACR Practice Parameter for specific screening recommendations. The patient will be entered into a reminder system with a target due date of 1 year for her next screening exam. Narrative 06/15/2024 11:42 AM SKILLED NURSING PROFESSIONAL Screening Mammogram Bilateral W Francisco: 06/15/24 The [...] been no suspicious change. Leticia Fernandez MD IM MAMMO PRO CEDURES Final Result * Stool DNA - Cologuard (01/27/2024 8:18 AM CDT) Stool DNA - Cologuard Negative Negative [employer] (CLIA #:[id number]) Comment: NEGATIVE TEST RESULT. A negative Cologuard [...] (Nia Fernandez al, N Engl J Med 2014;370(14):0929-3099) The normal value (reference range) for this assay is negative. COLOGUARD RE-SCREENING RECOMMENDATION: Periodic colorectal cancer screening is an important part of preventive healthcare for asymptomatic individuals at average risk for colorectal cancer. Following a negative Cologuard result, the [place] [employer] and U.S. Multi-Society Task Force screening guidelines recommend a Cologuard re-screening interval of 3 years. References: [place] [employer] Guideline for Colorectal Cancer Screening: https://www.cancer.org/cancer/mmzrv-ydtduj-dlykne/dcqusdohg-cqacwquzl-hosxpls/ac s-rec ommendations.html.; James SIEGEL, Nathalie BURCH, Meagan CERDA, Colorectal Cancer Screening: Recommendations for Physicians and Patients from the U.S. Multi-Society Task Force on Colorectal Cancer Screening , Am J Gastroenterology 2017; 112:0345-2803. TEST DESCRIPTION: Composite algorithmic analysis of stool [...] screened with both Cologuard and colonoscopy. (Nia Velásquez et al, N Engl J Med 2014;370(14):5884-1972.) Cologuard may produce a false negative or false positive result (no colorectal cancer or precancerous polyp present at colonoscopy follow up). A negative Cologuard test result does not guarantee the absence of CRC or advanced adenoma (pre-cancer). The current Cologuard screening interval is every 3 years. ([place] [employer] and U.S. Multi-Society Task Force). Cologuard performance data in a 10,000 patient pivotal study using colonoscopy as the reference method can be accessed at the following location: www.Expediciones.mx.veriCAR/results. Additional description of the Cologuard test process, warnings and precautions can be found at www.Sonocinerd.com. Stool 01/27/2024 8:18 AM CDT 01/28/2024 9:44 AM CDT Leticia Fernandez MD LAB B HUONG FLUIDS AND STOOLS ORDERABLES Final Result [employer] (CLIA #:[id number]) [place] [address] * Dexa Axial Skeleton Bone Density 1 or 2 Site (12/26/2022 3:28 PM CDT) Anatomical Region Laterality Modality Body N/A Mammography 12/28/2022 10:0 6 AM CDT Narrative 12/28/2022 10:08 AM CDT EXAM DESCRIPTION: DEXA AXIAL SKELETON BONE DENSITY 1 OR MORE SITES REASON FOR STUDY: 67 y/o year old F with given history of screening. 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 TW: MARIE Report ID: [id number] Reading Location: [id number] Procedure Note Bettie Watt MD - 12/28/2022 EXAM DESCRIPTION: DEXA AXIAL SKELETON BONE DENSITY 1 OR MORE SITES REASON FOR STUDY: 67 y/o year old F with given history of screening. 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 TW: MARIE Report ID: [id number] Reading Location: [place] [address] [place] Leticia Fernandez MD IMG DXA PROCE DURES Final Result * Hepatitis C antibody (02/18/2019 2:09 PM CDT) Hep C Ab Nonreactive Nonreactive KIARA JESUS Comment: Interpretive Data Positive results should be confirmed by a molecular method. If positive, a second separately collected sample should be submitted for Hepatitis C Virus (HCV) RNA Detection and Quantitation by Real-Time Reverse Instrument Man-PCR (RT-PCR). Current interpretive data was last revised on 2016. Blood specimen (specimen) 02/18/2019 2:09 PM CDT 02/18/2019 2:19 PM CDT us Christal Keating MD LAB MICROBIOLOGY - GENERAL ORDERABLES Edited Result - Final KIARA JESUS [facility] Department [place] [address] * Colonoscopy (03/15/2011) Anatomical Region Laterality Modality Other us Historical Provider ENDOSCOPY PROCEDURES Tana l Result from Last 3 Months or Most Recently Relevant to Health Maintenance Insurance MEDICARE [facility] MEDICARE [facility] SUPPLEMENT [place] [id number] MEDICARE [facility] SUPPLEMENT [place] [id number] Care Teams Day Care Attendant Relationship Specialty Start Date End Date Leticia Fernandez MD [address] [place] [address] PCP - General Internal Medicine 11/01/19 AftTracy MD PhD [address] [place] [address] Referring Physician Surgical Oncology 02/16/18 Shante Spicer NP [address] [place] [address] Nurse Practitioner Cardiovascular Disease 12/08/19 Christal Keating MD [address] [facility] DIV IM MEDICAL ONCOLOGY, [facility] [address] [place] [address] Medical Oncologist/Mechanical Design Engineer Products Medical Oncology 10/05/21
--- OUTSIDE RECORDS SUMMARY | 2024-10-12 14:11 | XMS_ITS | Referral Summary ---
Author Organization [facility] al Address [address] [place] [address] Care Team Providers Care Mechanical Engineering Officer Name Role Phone Aft, Tracy De Leon MD PhD Unavailable [phone] Leticia Fernandez MD Primary Care Provider Shante Spicer NP Unavailable Christal Keating MD Unavailable [phone] Encounters Date Type Department Care Team Description 10/04/2024 3:30 PM FOIL SPINNER Office Visit [facility] [address] [place] [phone] Shruti Park NP Acute non-recurrent pansinusitis (Primary Dx); Immune to measles; Class 1 obesity due to excess calories with serious comorbidity and body mass index (BMI) of 31.0 to 31.9 in adult 08/12/2024 2:15 PM FOIL SPINNER Office Visit [facility] [address] [place] [phone] Leticia Fernandez MD Chronic systolic congestive heart failure (HCC) (Primary Dx); Chronic atrial fibrillation (HCC); Mixed hyperlipidemia; Acquired hypothyroidism; Primary hypertension; Routine general medical examination at a health care facility; Abnormal blood sugar; Vitamin D deficiency 07/14/2024 11:00 AM FOIL SPINNER Office Visit [facility] Card[facility] Floor [address], [address] [place] [address] Néstor Dey MD Chronic atrial fibrillation (HCC) [...] 08/10/2019 Assessment & Plan (08/10/2019 2:20 PM FOIL SPINNER): Stable on Vitamin D Chronic anticoagulation 01/19/2019 Assessment & Plan (04/20/2019 1:50 PM CDT): Continue Eliquis 5 b.i.d. No bleeding. Assessment & Plan (01/19/2019 7:16 AM CDT): Stable on Eliquis BMI 33.0-33.9,adult 07/20/2018 Assessment & Plan (01/19/2019 7:18 AM CDT): BMI Follow-up includes: exercise counseling. Allergic rhinitis 07/20/2018 Assessment & Plan (08/09/2019 4:15 PM FOIL SPINNER): Stable on Flonase and fexofenadine Assessment & Plan (01/19/2019 7:18 AM CDT): Stable on Flonase and fexofenadine Restrictive ventilatory defect 07/13/2018 Hyperlipidemia 08/26/2017 Assessment & Plan (08/09/2019 4:16 PM FOIL SPINNER): Stable on simvastatin and fenofibrate Assessment & Plan (04/20/2019 1:53 PM CDT): Continue simvastatin Assessment & Plan (01/19/2019 7:16 AM CDT): Stable on fenofibrate and simvastatin Hypothyroidism 05/19/2017 Assessment & Plan (08/09/2019 4:13 PM FOIL SPINNER): Stable on levothyroxine Assessment & Plan (01/19/2019 7:15 AM CDT): Stable on levothyroxine CLL (chronic lymphocytic leukemia) 03/20/2016 Assessment & Plan (08/09/2019 4:14 PM FOIL SPINNER): Active surveillance with Dr. Keating Assessment & Plan (01/19/2019 7:17 AM CDT): Stable. Follows with Dr. Keating Scoliosis Resolved Problems Problem Noted Date Diagnosed Date Resolved Date CLL C91.10 02/09/2018 02/25/2018 Chronic atrial fibrillation 05/19/2017 09/03/2019 Assessment & Plan (08/10/2019 2:16 PM FOIL SPINNER): Rate controlled on metoprolol. Stroke prophylaxis with Eliquis Assessment & Plan (04/20/2019 1:50 PM CDT): Rate controlled. Severe left atrial enlargement. Continue metoprolol and digoxin. Assessment & Plan (01/19/2019 7:16 AM CDT): Rate controlled on Toprol XL and digoxin. Stroke prophylaxis with Eliquis Immunizations Immunization Administration Dates Next Due COVID-19 mRNA (FileThis) 0.3 m L (30 mcg) vaccine (12 [...] on file Legal Sex Female 10:43 AM FOIL SPINNER Gender Identity Female 05/01/2020 1:22 PM CDT Sexual Orientation Straight 05/01/2020 1: 22 PM CDT Last Filed Vital Signs Vital Sign Reading Time Taken Comments Blood Pressure 114/72 10/04/2024 3:25 PM FOIL SPINNER Pulse 88 10/04/2024 3:25 PM FOIL SPINNER Temperature 35.9 C (96.6 F) 10/04/2024 3:25 PM FOIL SPINNER Respiratory Rate 17 07/14/2024 10:57 AM FOIL SPINNER Oxygen Saturation 98% 10/04/2024 3:25 PM FOIL SPINNER Inhaled Oxygen Concentration - - Weight 81.3 kg (179 lb 3.2 oz) 10/04/2024 3:25 P M FOIL SPINNER Height 160 cm (5' 3 ) 10/04/2024 3:25 PM FOIL SPINNER Body Mass Index 31.74 10/04/2024 3:25 PM FOIL SPINNER Plan of Treatment Not on file Procedures Procedure Name Priority Date/Time Associated Diagnosis Comments SCREENING MAMMOGRAM BILATERAL W FRANCISCO Schedule Routine, Read Routine (OP Routine) 06/15/2024 11:10 AM FOIL SPINNER Screening mammogram, encounter for STOOL DNA COLOGUARD [...] Mammogram Bilateral W Francisco (06/15/2024 11:10 AM FOIL SPINNER) Anatomical Region Laterality Modality Breast Bilateral Mammography Impressions 06/15/2024 11:42 AM FOIL SPINNER BI-RADS ATLAS category (overall): 1 - Negative There is no mammographic evidence of malignancy. A 1 year screening mammogram is recommended. The patient has been or will be contacted. We recommend annual screening mammography for women at average risk of breast cancer beginning at age 40, based on guidelines of the [employer] (ACR Practice Parameter for the Performance of Screening and Diagnostic Mammography) and [employer]. For women with and elevated risk of breast cancer, please refer to the ACR Practice Parameter for specific screening recommendations. The patient will be entered into a reminder system with a target due date of 1 year for her next screening exam. Narrative 06/15/2024 11:42 AM FOIL SPINNER Screening Mammogram Bilateral W Francisco: 06/15/24 The [...] been no suspicious change. Leticia Fernandez MD [facility] [place]ED[place] Final Result * Stool DNA - Cologuard (01/27/2024 8:18 AM CDT) Stool DNA - Cologuard Negative Negative [facility] (CLIA #:[id number]) Comment: NEGATIVE TEST RESULT. A negative Cologuard [...] (Nia Fernandez al, N Engl J Med 2014;370(14):8424-0465) The normal value (reference range) for this assay is negative. COLOGUARD RE-SCREENING RECOMMENDATION: Periodic colorectal cancer screening is an important part of preventive healthcare for asymptomatic individuals at average risk for colorectal cancer. Following a negative Cologuard result, the [place] [employer] and U.S. Multi-Society Task Force screening guidelines recommend a Cologuard re-screening interval of 3 years. References: [place] [employer] Guideline for Colorectal Cancer Screening: https://www.cancer.org/cancer/xkwkp-dxleor-edlwul/bkarhihla-lnkymbwvz-stvhaeh/ac s-rec ommendations.html.; James DK, Nathalie BURCH, Meagan WhiteK, Colorectal Cancer Screening: Recommendations for Physicians and Patients from the U.S. Multi-Society Task Force on Colorectal Cancer Screening , Am J Gastroenterology 2017; 112:1932-5043. TEST DESCRIPTION: Composite algorithmic analysis of stool [...] colonoscopy. (Nia Baptiste, N Engl J Med 2014;370(14):5767-7687.) Cologuard may produce a false negative or false positive result (no colorectal cancer or precancerous polyp present at colonoscopy follow up). A negative Cologuard test result does not guarantee the absence of CRC or advanced adenoma (pre-cancer). The current Cologuard screening interval is every 3 years. ([employer] [employer] and U.S. Multi-Society Task Force). Cologuard performance data in a 10,000 patient pivotal study using colonoscopy as the reference method can be accessed at the following location: www.[employer]/results. Additional description of the Cologuard test process, warnings and precautions can be found at www.cologuard.com. Stool 01/27/2024 8:18 AM CDT 01/28/2024 9:44 AM CDT Leticia Fernandez MD LAB B [facility] FLUIDS AND STOOLS ORDERABLES Final Result [employer] (CLIA #:[id number]) [place] [address] * Dexa Axial Skeleton Bone Density 1 or 2 Site (12/26/2022 3:28 PM CDT) Anatomical Region Laterality Modality Body N/A Mammography 12/28/2022 10:0 6 AM CDT Narrative 12/28/2022 10:08 AM CDT EXAM DESCRIPTION: DEXA AXIAL SKELETON BONE DENSITY 1 OR MORE SITES REASON FOR STUDY: 67 y/o year old F with given history of screening. 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 TW: TW Report ID: [id number] Reading Location: [id number] Procedure Note Bettie Watt MD - 12/28/2022 EXAM DESCRIPTION: DEXA AXIAL SKELETON BONE DENSITY 1 OR MORE SITES REASON FOR STUDY: 67 y/o year old F with given history of screening. 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 TW: MARIE Report ID: [id number] Reading Location: [id number] us Leticia Fernandez MD IMG DXA JUNE HDEZ Final Result * Hepatitis C antibody (02/18/2019 2:09 PM CDT) Hep C Ab Nonreactive Nonreactive [facility] Comment: Interpretive Data Positive results should be confirmed by a molecular method. If positive, a second separately collected sample should be submitted for Hepatitis C Virus (HCV) RNA Detection and Quantitation by Real-Time Reverse Lining Machine Operator-PCR (RT-PCR). Current interpretive data was last revised on 2016. Blood specimen (specimen) 02/18/2019 2:09 PM CDT 02/18/2019 2:19 PM CDT Christal Keating MD LAB MICROBIOLOGY - GENERAL ORDERABLES Edited Result - Final [facility] Department [place] [address] * Colonoscopy (03/15/2011) Anatomical Region Laterality Modality Other Historical Provider ENDOSCOPY PROCEDURES Tana l Result from Last 3 Months or Most Recently Relevant to Health Maintenance Insurance MEDICARE [facility] [place] [id number] MEDICARE [facility] [place] [id number] MEDICARE [facility] [place] [id number] Care Teams Mechanical Engineering Officer Relationship Specialty Start Date End Date Leticia Fernandez MD [address] [place] [address] PCP - General Internal Medicine 11/01/19 Aft, Tracy De Leon MD PhD [address] [place] [address] Referring Physician Surgical Oncology 02/16/18 Shante Spicer NP [address] [place] [address] Nurse Practitioner Cardiovascular Disease 12/08/19 Christal Keating MD [address] [facility], [facility] [address] [place] [address] Medical Oncologist/Concrete Pointer Medical Oncology 10/05/21
--- OUTSIDE RECORDS SUMMARY | 2024-10-12 14:11 | XMS_ITS | Encounter Summary ---
Author Organization [facility] Address [address] [place] [address] Phone Care Team Providers Care Director Telehealth Name Role Phone Aft, Tracy De Leon MD PhD Unavailable [phone] Malvin Hernandez MD Unavailable [phone] Leticia Fernandez MD Primary Care Provider Enio Stephenson MD Unavailable [phone] Rater, Shante CHAPIN Unavailable Christal Keating MD Unavailable [phone] Encounter Details Date Type Department Care Team [...] on file Legal Sex Female 10:43 AM CUSTODIAN SUPERVISOR Gender Identity Female 05/01/2020 1:22 PM CDT [...] documented as of this encounter Care Teams Director Telehealth Relationship Specialty Start Date End Date Leticia Fernandez MD [address] [place] [address] PCP - General Internal Medicine 11/01/19 Aft, Tracy De Leon MD PhD [address] [place] [address] Referring Physician Surgical Oncology 02/16/18 Malvin Hernandez MD [address] [place] [address] Kid Club Attendant Cardiovascular Disease 02/11/19 12/10/23 Enio Stephenson MD [address] [place] [address] Consulting Physician Cardiology 12/08/19 10/03/21 Shante Spicer NP [address] [place] [address] Nurse Practitioner Cardiovascular Disease 12/08/19 Christal Keating MD [address] [facility] [address] DIV IM MEDICAL ONCOLOGY, [facility] [address] [place] [address] Medical Oncologist/Livestock Farmers Medical Oncology 10/05/21 documented as of this encounter
--- OUTSIDE RECORDS SUMMARY | 2024-10-12 14:11 | XMS_ITS ---
Author Organization [facility] al Address [address] [place] [address] Care Team Providers Care Bottle Carrier Name Role Phone Aft, Tracy De Leon MD PhD Unavailable [phone] Leticia Fernandez MD Primary Care Provider Shante Spicer NP Unavailable Christal Keating MD Unavailable Active Problems Problem Noted Date Diagnosed Date [...] 08/10/2019 Assessment & Plan (08/10/2019 2:20 PM SENIOR RESEARCH SCIENTIST): Stable on Vitamin D Chronic anticoagulation 01/19/2019 Assessment & Plan (04/20/2019 1:50 PM CDT): Continue Eliquis 5 b.i.d. No bleeding. Assessment & Plan (01/19/2019 7:16 AM CDT): Stable on Eliquis BMI 33.0-33.9,adult 07/20/2018 Assessment & Plan (01/19/2019 7:18 AM CDT): BMI Follow-up includes: exercise counseling. Allergic rhinitis 07/20/2018 Assessment & Plan (08/09/2019 4:15 PM SENIOR RESEARCH SCIENTIST): Stable on Flonase and fexofenadine Assessment & Plan (01/19/2019 7:18 AM CDT): Stable on Flonase and fexofenadine Restrictive ventilatory defect 07/13/2018 Hyperlipidemia 08/26/2017 Assessment & Plan (08/09/2019 4:16 PM SENIOR RESEARCH SCIENTIST): Stable on simvastatin and fenofibrate Assessment & Plan (04/20/2019 1:53 PM CDT): Continue simvastatin Assessment & Plan (01/19/2019 7:16 AM CDT): Stable on fenofibrate and simvastatin Hypothyroidism 05/19/2017 Assessment & Plan (08/09/2019 4:13 PM SENIOR RESEARCH SCIENTIST): Stable on levothyroxine Assessment & Plan (01/19/2019 7:15 AM CDT): Stable on levothyroxine CLL (chronic lymphocytic leukemia) 03/20/2016 Assessment & Plan (08/09/2019 4:14 PM SENIOR RESEARCH SCIENTIST): Active surveillance with Dr. Keating Assessment & [...] in Level of Care Christal Keating MD Oncology Chemotherapy Treatment Plan Name Start Date Discontinue Date Treatment Medications Discontinue Reason Plan Provider Cycles [id number] - [facility] - Lymphoma- [id number] - Arm A - Ibrutinib / Obinutuzumab / Venetoclax - Cycles 3-19 - Low / Intermediate TLS Risk (OUTPATIENT) 9 11/07/2020 [id number] (/E A9161) obinutuzumab IVPB in 250 mLINV-[id number]_BJ ibrutinib (/E A9161)INV-[facility] venetoclax (ABT-199) (/E A9161) Therapy Christal Serrano MD 19 (17 of 17 cycles) completed [id number] - [facility] - Lymphoma- [id number] - Arm A - Ibrutinib / Obinutuzumab [...] 09/03/2019 Assessment & Plan (08/10/2019 2:16 PM SENIOR RESEARCH SCIENTIST): Rate controlled on metoprolol. Stroke prophylaxis with Eliquis Assessment & Plan (04/20/2019 1:50 PM CDT): Rate controlled. Severe left atrial enlargement. Continue metoprolol and digoxin. Assessment & Plan (01/19/2019 7:16 AM CDT): Rate controlled on Toprol XL and digoxin. Stroke prophylaxis with Eliquis
--- OUTSIDE RECORDS SUMMARY | 2024-10-12 14:11 | XMS_ITS | Clinical Summary ---
Author Organization [facility] Address [address] [place] [address] Care Team Providers Care International Operations Manager Name Role Phone Aft, Tracy De Leon MD PhD Unavailable [phone] Leticia Fernandez MD Primary Care Provider Shante Spicer NP Unavailable Christal Keating MD Unavailable [phone] Allergies Active Allergy Reactions Criticality Noted Date [...] 08/10/2019 Assessment & Plan (08/10/2019 2:20 PM COIL SPRING ASSEMBLER): Stable on Vitamin D Chronic anticoagulation 01/19/2019 Assessment & Plan (04/20/2019 1:50 PM CDT): Continue Eliquis 5 b.i.d. No bleeding. Assessment & Plan (01/19/2019 7:16 AM CDT): Stable on Eliquis BMI 33.0-33.9,adult 07/20/2018 Assessment & Plan (01/19/2019 7:18 AM CDT): BMI Follow-up includes: exercise counseling. Allergic rhinitis 07/20/2018 Assessment & Plan (08/09/2019 4:15 PM COIL SPRING ASSEMBLER): Stable on Flonase and fexofenadine Assessment & Plan (01/19/2019 7:18 AM CDT): Stable on Flonase and fexofenadine Restrictive ventilatory defect 07/13/2018 Hyperlipidemia 08/26/2017 Assessment & Plan (08/09/2019 4:16 PM COIL SPRING ASSEMBLER): Stable on simvastatin and fenofibrate Assessment & Plan (04/20/2019 1:53 PM CDT): Continue simvastatin Assessment & Plan (01/19/2019 7:16 AM CDT): Stable on fenofibrate and simvastatin Hypothyroidism 05/19/2017 Assessment & Plan (08/09/2019 4:13 PM COIL SPRING ASSEMBLER): Stable on levothyroxine Assessment & Plan (01/19/2019 7:15 AM CDT): Stable on levothyroxine CLL (chronic lymphocytic leukemia) 03/20/2016 Assessment & Plan (08/09/2019 4:14 PM COIL SPRING ASSEMBLER): Active surveillance with Dr. Keating Assessment & Plan (01/19/2019 7:17 AM CDT): Stable. Follows with Dr. Keating Scoliosis Resolved Problems Problem Noted Date Diagnosed Date Resolved Date CLL C91.10 02/09/2018 02/25/2018 Chronic atrial fibrillation 05/19/2017 09/03/2019 Assessment & Plan (08/10/2019 2:16 PM COIL SPRING ASSEMBLER): Rate controlled on metoprolol. Stroke prophylaxis with Eliquis Assessment & Plan (04/20/2019 1:50 PM CDT): Rate controlled. Severe left atrial enlargement. Continue metoprolol and digoxin. Assessment & Plan (01/19/2019 7:16 AM CDT): Rate controlled on Toprol XL and digoxin. Stroke prophylaxis with Eliquis Encounters Date Type Department Care Team Description 10/04/2024 3:30 PM COIL SPRING ASSEMBLER Office Visit [facility] Primary Care [address] [place] [phone] Shruti Park NP Acute non-recurrent pansinusitis (Primary Dx); Immune to measles; Class 1 obesity due to excess calories with serious comorbidity and body mass index (BMI) of 31.0 to 31.9 in adult 08/12/2024 2:15 PM COIL SPRING ASSEMBLER Office Visit [facility] Care [address] [place] [phone] Leticia Fernandez MD Chronic systolic congestive heart failure (HCC) (Primary Dx); Chronic atrial fibrillation (HCC); Mixed hyperlipidemia; Acquired hypothyroidism; Primary hypertension; Routine general medical examination at a health care facility; Abnormal blood sugar; Vitamin D deficiency 07/14/2024 11:00 AM COIL SPRING ASSEMBLER Office Visit [facility] Cardiology [address] [facility] [address], [address] [place] [address] Néstor Dey MD Chronic atrial fibrillation (HCC) (Primary Dx); Mixed hyperlipidemia; Primary hypertension from Last 3 Months Immunizations Immunization Administration Dates Next Due COVID-19 mRNA (Modbook) 0.3 m L (30 mcg) vaccine (12 [...] Osteoporosis 2020 Cataract 2019 Heart disease ASD /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/ Congestive Hear Failure Sleep apnea 2019 Family [...] on file Legal Sex Female 10:43 AM COIL SPRING ASSEMBLER Gender Identity Female 05/01/2020 1:22 PM CDT [...] Comments Blood Pressure 114/72 10/04/2024 3:25 PM COIL SPRING ASSEMBLER Pulse 88 10/04/2024 3:25 PM COIL SPRING ASSEMBLER Temperature 35.9 C (96.6 F) 10/04/2024 3:25 PM COIL SPRING ASSEMBLER Respiratory Rate 17 07/14/2024 10:57 AM COIL SPRING ASSEMBLER Oxygen Saturation 98% 10/04/2024 3:25 PM COIL SPRING ASSEMBLER Inhaled Oxygen Concentration - - Weight 81.3 kg (179 lb 3.2 oz) 10/04/2024 3:25 P M COIL SPRING ASSEMBLER Height 160 cm (5' 3 ) 10/04/2024 3:25 PM COIL SPRING ASSEMBLER Body Mass Index 31.74 10/04/2024 3:25 PM COIL SPRING ASSEMBLER Plan of Treatment Health Maintenance Due Date [...] Read Routine (OP Routine) 06/15/2024 11:10 AM COIL SPRING ASSEMBLER Screening mammogram, encounter for STOOL DNA COLOGUARD [...] Mammogram Bilateral W Francisco (06/15/2024 11:10 AM COIL SPRING ASSEMBLER) Anatomical Region Laterality Modality Breast Bilateral Mammography Impressions 06/15/2024 11:42 AM COIL SPRING ASSEMBLER BI-RADS ATLAS category (overall): 1 - Negative There is no mammographic evidence of malignancy. A 1 year screening mammogram is recommended. The patient has been or will be contacted. We recommend annual screening mammography for women at average risk of breast cancer beginning at age 40, based on guidelines of the [employer] (ACR Practice Parameter for the Performance of Screening and Diagnostic Mammography) and [employer]nec[employer]. For women with and elevated risk of breast cancer, please refer to the ACR Practice Parameter for specific screening recommendations. The patient will be entered into a reminder system with a target due date of 1 year for her next screening exam. Narrative 06/15/2024 11:42 AM COIL SPRING ASSEMBLER Screening Mammogram Bilateral W Francisco: 06/15/24 The [...] CDT) Stool DNA - Cologuard Negative Negative [facility] (CLIA #:[id number]) Comment: NEGATIVE TEST RESULT. A negative Cologuard [...] (Nia Fernandez al, N Engl J Med 2014;370(14):5597-3526) The normal value (reference range) for this assay is negative. COLOGUARD RE-SCREENING RECOMMENDATION: Periodic colorectal cancer screening is an important part of preventive healthcare for asymptomatic individuals at average risk for colorectal cancer. Following a negative Cologuard result, the [employer] Society and U.S. Multi-Society Task Force screening guidelines recommend a Cologuard re-screening interval of 3 years. References: [employer] Guideline for Colorectal Cancer Screening: https://www.cancer.org/cancer/pwdzp-lgxabi-odfuek/cbxxhveyf-ehobtsito-kentmso/ac s-rec ommendations.html.; James SIEGEL, Nathalie BURCH, Meagan CERDA, Colorectal Cancer Screening: Recommendations for Physicians and Patients from the U.S. Multi-Society Task Force on Colorectal Cancer Screening , Am J Gastroenterology 2017; 112:6132-2619. TEST DESCRIPTION: Composite algorithmic analysis of stool [...] Velásquez et al, N Engl J Med 2014;370(14):9110-9103.) Cologuard may produce a false negative or false positive result (no colorectal cancer or precancerous polyp present at colonoscopy follow up). A negative Cologuard test result does not guarantee the absence of CRC or advanced adenoma (pre-cancer). The current Cologuard screening interval is every 3 years. ([employer] Society and U.S. Multi-Society Task Force). Cologuard performance data in a 10,000 patient pivotal study using colonoscopy as the reference method can be accessed at the following location: www.[employer].[email or web address]/results. Additional description of the Cologuard test process, warnings and precautions can be found at www.[employer].com. Stool 01/27/2024 8:18 AM CDT 01/28/2024 9:44 AM CDT Leticia Fernandez MD LAB B HUONG FLUIDS AND STOOLS ORDERABLES Final Result [facility] (CLIA #:[id number]) [place] [address] * Dexa Axial Skeleton Bone Density 1 or 2 Site (12/26/2022 3:28 PM CDT) Anatomical Region Laterality Modality Body N/A Mammography 12/28/2022 10:0 6 AM CDT Narrative 12/28/2022 10:08 AM CDT EXAM DESCRIPTION: DEXA AXIAL SKELETON BONE DENSITY 1 OR MORE SITES REASON FOR STUDY: 67 y/o year old F with given history of screening. 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 TW: MARIE Report ID: [id number] Reading Location: [id number] Procedure Note Bettie Watt MD - 12/28/2022 EXAM DESCRIPTION: DEXA AXIAL SKELETON BONE DENSITY 1 OR MORE SITES REASON FOR STUDY: 67 y/o year old F with given history of screening. 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 TW: MARIE Report ID: [id number] Reading Location: [place] [address] [place] Leticia Fernandez MD IMG DXA PROCE DURES Final Result * Hepatitis C antibody (02/18/2019 2:09 PM CDT) Hep C Ab Nonreactive Nonreactive KIARA JESUS Comment: Interpretive Data Positive results should be confirmed by a molecular method. If positive, a second separately collected sample should be submitted for Hepatitis C Virus (HCV) RNA Detection and Quantitation by Real-Time Reverse Bleach Boiler Puller-PCR (RT-PCR). Current interpretive data was last revised on 2016. Blood specimen (specimen) 02/18/2019 2:09 PM CDT 02/18/2019 2:19 PM CDT us Christal Keating MD LAB MICROBIOLOGY - GENERAL ORDERABLES Edited Result - Final KIARA JESUS [facility] [place] [address] * Colonoscopy (03/15/2011) Anatomical Region Laterality Modality Other us Historical Provider ENDOSCOPY PROCEDURES Tana l Result from Last 3 Months or Most Recently Relevant to Health Maintenance Insurance MEDICARE [facility] MEDICARE [facility] SUPPLEMENT CARL DOHERTY [id number] MEDICARE [facility] SUPPLEMENT CHASCARL [id number] Care Teams International Operations Manager Relationship Specialty Start Date End Date Leticia Fernandez MD [address] [place] [address] PCP - General Internal Medicine 11/01/19 AftTracy MD PhD [address] [place] [address] Referring Physician Surgical Oncology 02/16/18 Shante Spicer NP [address] [place] [address] Nurse Practitioner Cardiovascular Disease 12/08/19 Christal Keating MD [address] [facility] DIV IM MEDICAL ONCOLOGY, [facility] [address] [place] [address] Medical Oncologist/Phonograph Cartridge Assembler Medical Oncology 10/05/21
--- OUTSIDE RECORDS SUMMARY | 2024-10-12 14:11 | XMS_ITS | Encounter Summary ---
Author Organization [facility] Address [address] [place] [address] Phone Care Team Providers Care Astronomy Professor Name Role Phone Aft, Tracy De Leon MD PhD Unavailable [phone] Malvin Hernandez MD Unavailable [phone] Leticia Fernandez MD Primary Care Provider Enio Stephenson MD Unavailable [phone] Nayan, Shante CHAPIN Unavailable Christal Keating MD Unavailable [phone] Encounter Details Date Type Department Care Team (Latest Contact Info) Description 05/21/2017 Orders Only [facility] CONVERSION Scanning, Provider Social History Tobacco Use Types Packs/Day Years Used Date Smoking Tobacco: Never Comments Unknown Sex and Gender Information Value Date Recorded Sex Assigned at Not on file Legal Sex 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 Gender Identity Female 05/01/2020 1:22 PM CDT [...] documented as of this encounter Care Teams Astronomy Professor Relationship Specialty Start Date End Date Leticia Fernandez MD [address] [place] [address] PCP - General Internal Medicine 11/01/19 Aft, Tracy De Leon MD PhD [address] [place] [address] Referring Physician Surgical Oncology 02/16/18 [place] [address] [place] [address] Private Investigator Surveillance Cardiovascular Disease 02/11/19 12/10/23 [place] [address] [place] [address] Consulting Physician Cardiology 12/08/19 10/03/21 [place] [address] [place] [address] Nurse Practitioner Cardiovascular Disease 12/08/19 [place] [address] [place] [address] DIV IM MEDICAL ONCOLOGY, [facility] [address] [place] [address] Medical Oncologist/Cobbler Upper Medical Oncology 10/05/21 documented as of this encounter
== END 2024-10-12 13:09 | disposition left against medical advice (07) ==
PROVIDERS: PCP Internal Medicine
DX: T39.1X1A Poisoning by 4-Aminophenol derivatives, accidental (unintentional), initial encounter (principal)
CPT/HCPCS: 99199